=== PATIENT | female | born 1990 | race Two or more races ===

== ENCOUNTER 2020-08-03 22:40 | Emergency (ER) | payer OTHER ==
[~2020-08-03] VITALS: Ht 160 cm; Wt 59.0 kg
[2020-08-04] MEDS ORDERED: KETO10TA2 PO (02:57)
[2020-08-04] MEDS ORDERED: ONDANSETRON HCL4 MG PO (02:57)
== END 2020-08-04 03:01 | disposition home or self-care (01) ==
LOC: ER 22:40
DX: R10.2 Pelvic and perineal pain (principal); R11.11 Vomiting without nausea